=== PATIENT | male | born 1935 | race African-American/Black ===

== ENCOUNTER 2025-06-29 09:37 | Outpatient (AMB) | payer MEDICARE, SELFPAY ==
[2025-06-29 09:39] VITALS: BP 109/70; PULSE 66; O2SAT 100; BMI 21.8
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
== END 2025-06-29 10:02 | disposition home or self-care (01) ==
LOC: HO.HKA 09:38
PROVIDERS: PCP Internal Medicine; Visit Provider Internal Medicine Hypertension Specialist
DX: N18.30 Chronic kidney disease, stage 3 unspecified (principal); D64.9 Anemia, unspecified; I10 Essential (primary) hypertension
CPT/HCPCS: 99204

== ENCOUNTER 2025-06-29 10:14 | Outpatient (REF) | payer MEDICARE, SELFPAY ==
[2025-06-29 10:56] LABS: Appearance Urine Clear; Glucose Urine UA Negative (Negative); PH 5.5 (5.0-9.0); Specific Gravity - Urine 1.020 (1.005-1.025); UMIC TRIGGER UA YES
[2025-06-29 11:02] LABS: Hematocrit 29.3 % (42.0-52.0); Hemoglobin 8.8 g/dl (14.0-18.0); Mean Corpuscular HGB Conc 30.0 g/dl (31.0-36.0); Mean Corpuscular Hemoglobin 23.8 pg (27.0-33.0); Mean Corpuscular Volume 79.4 fL (80.0-98.0); NRBC Abs Auto 0.000 X10*3/uL (0.0-0.012); NRBC Pct Auto 0.0 /100WBC (0.0-0.2); Platelet Count 275 X10*3/uL (160-400); Red Blood Count 3.69 X10*6/uL (4.60-5.80); White Blood Count 6.4 X10*3/uL (4.8-10.8)
[2025-06-29 11:21] LABS: Anion Gap 11 (12-20); Blood Urea Nitrogen 27 mg/dL (9-16); Calcium 8.9 mg/dL (8.4-10.2); Carbon Dioxide 20 mmol/L (22-29); Chloride 116 mmol/L (96-108); Estimated Glomerular Filt Rate 33; Iron 45 mcg/dL (45-160); Percent Iron Saturation 20 % (15-50); Potassium 4.0 mmol/L (3.3-5.1); Sodium 143 mmol/L (135-145); Total Iron Binding Capacity 226 mcg/dL (228-428); Unsaturated Iron Binding 181 ug/dL
[2025-06-29 11:26] LABS: Total Protein Urine Random 96 mg/dL (<12)
[2025-06-29 11:34] LABS: Parathyroid Hormone Intact 101.7 pg/mL (8.7-77.1)
[2025-06-29 11:46] LABS: Ferritin 45 ng/mL (20-250)
--- OUTSIDE RECORDS SUMMARY | 2025-06-29 21:18 | XMS_ITS | Data Portability ---
Author Organization [place] [facility] Address [address] [place] [id number] Care Team Providers Care Aquatics Lifeguard Name Role Phone MARTINEZ NELSON Primary Care Provider [phone] Assessment Encounter Date Assessment Date Assessment LastModified by Organization Details LastModified Time 04/12/2021 04/12/2021 Overview/History : Patient is an 85 year old male who is alert to person and place. He relies on the calendar to recite date. Patient presents at request of his [employer] with uncontrolled HTN. He is unreliable with remember to take his medication. He is on a HTN medication regime consisting of Amlodipine, Hydralazine and Labetalol QD. Patient medical history significant for stroke in the past. Patient lives alone in his home. His daughters are easily available via telephone and were apprised of patient status. There are multiple cans of soup, canned vegetables and a large container of salt on top of the microwave. Exam: Afebrile 97.7. HRR 77, +murmur. Hypertensive 200/90 left and right upper extremities. Moist mucous membranes. LSCTA bilaterally, no work of breathing. Abdomen SNT, + BS x 4 quadrants. No CVA tenderness. DDx considered, but not limited to: HTN Anxiety considered Sleep apnea considered Renovascular hypertension WANDER Work up/Results: exam Plan/Discussion: Patient visit escalated to ED. He did take his antihypertensive medications yesterday evening and this am. HTN remains unchanged from yesterday. Patient denies symptomology, however given his CVA history and WANDER history advised to go to ED. Contacted patient PCP office, patient to go to ED for stabilization. [address] provided [address] [facility]. Proper Personal Protective Equipment (PPE), including gloves, eye protection and masks were donned and doffed appropriately and all equipment cleaned using approved technique with germicidal disposable wipes prior to and after care of this patient according to [facility]'s infection prevention protocols. In order to obtain further information and compare any laboratory results/values, I have accessed old patient records. This information was pertinent in my medical decision making today. Not available 04/12/2021 21:17:43 Plan of Treatment Reminders Order Date Submit Date Provider Last Modified By Organization Details Last Modified Time Details Appointments None record ed. Lab None record ed. Referral None record ed. Procedures None record ed. Surgeries None record ed. Imaging None record ed. Medication Orders None record ed. Patient TargetsNo targets recorded. Patient InstructionsNo instructions recorded. Reason for Referral None Reported. Medical Equipment None Reported. Allergies No known drug allergies Medications Name Sig Start Date Stop Date Status Note LastModified by Organization Details LastModified Time atorvastatin 40 mg tablet active Not Available Not Available Not Available labetalol 200 mg tablet active Not Available Not Available No t Available hydralazine 25 mg tablet active Not Available Not Available No t Available amlodipine 10 mg tablet active Not Available Not Available No t Available Vitals Date Recorded Body temperature Heart rate Respiratory rate Oxygen saturation Oxygen saturation in Arterial blood by Pulse oximetry Systolic And Diastolic Provider Name and Address Organization Details Last Updated DateTime 97.7 [degF] 77 /min 20 /min 97 % 97 % 200/90 mm[Hg] Not Available [facility] 08:47:50 Social History Question Answer Notes LastModified by Organizat ion Details LastModified Time Tobacco Smoking Status Never Smoker Fariha Lacey, [address] [place], [id number], [place] [facility] 04/12/2021 08:47:21 Do You Have An Advance Directive? No Information not available 04/12/2021 What Is Your Code Status? Full Code Information not available 04/12/2021 Within The Past 12 Months, Has It Happened That The Food You Bought Just Didn't Last And You Didn't Have Money To Get More. No Information not available 04/12/2021 Within The Past 12 Months, Have You Worried That Your Food Would Run Out Before You Got Money To Buy More. No Information not available 04/12/2021 Fall Risk: Do You Feel Unsteady When Standing Or Walking? Yes History Of Falls Information not available 04/12/2021 We Know That How And When People Interact With Friends And Family Can Be Very Different From Person To Person. How Often Do You Have The Opportunity To See Or Talk To People That You Care About And Feel Close To? (Ex: Talking To Friends On The Phone Or Visiting Friends Or Family Or Going To Buddhist Or Club Meetings) 1 Or 2 Times Per Week Information not available 04/12/2021 Excessive Alcohol Or Drug Use No Information not available 04/12/2021 Does This Patient Have A PCP? Yes Information not available 04/12/2021 We Know From Many Of Our Patients That Covering All Of Their Costs Can Be Difficult At Times. This Can Cause Stress And Impact Health. In The Past Year, Have You Been Unable To Get Any Of The Following When It Was Really Needed? No Information not available 04/12/2021 What Is Your Housing Situation Today? I Have Housing Information not available 04/12/2021 Would You Like Help Connecting To Resources? None Information not available 04/12/2021 Sex: Unknown Functional Status Question Answer Note LastModified by Organizat ion Details LastModified Time Do you use any illicit or recreational drugs? No Information not available 04/12/2021 Do you or have you ever used any other forms of tobacco or nicotine? No Information not available 04/12/2021 What is your level of alcohol consumption? None Information not available 04/12/2021 Mental Status None recorded. Family History Nothing Reported. Medical History Condition Response Diabetes N Coronary Artery Disease N High Cholesterol Y Cancer N Pulmonary Embolism N Stroke Y Hypertension Y Depression N COPD N Asthma N Kidney Disease Y Past Encounters Encounter ID Performer Location Encounter Start Date Encounter Closed Date Diagnosis/Indication Diagnosis SNOMED-CT Code Diagnosis ICD10 Code Diagnosis IMO Codes Diagnosis Note [id number] Fariha Lacey NP [facility] [address] [place] [address] 04/12/2021 08:40:16 04/12/2021 14:02:52 Health Concerns Section Related Observation LastModified by Organization Detai ls LastModified Time None Recorded Concern Status LastModified by Organization Details LastModified Time None Recorded Advance Directives Directive N: Payers Insurance Date Sequence Insurance Name Policy Number Policy Parsons Covered Member ID Parsons Member ID Guarantor Name 04/11/2021 1 *SELF PAY* Stephen Valderrama [id number] Stephen Valderrama 04/13/2021 1 [facility] (MEDICARE REPLACEMENT/A DVANTAGE - HMO) [id number] Stephen Valderrama [id number] Stephen Valderrama Notes Date Note Type Note Provider Name and Address Organization Details Recorded Time 04/12/2021 text/html Patient is an 85 year old male who is new to and new to this provider. Chief complaint is uncontrolled HTN. Patient denies symptoms. This provider contacted his [employer] who was in residence with patient yesterday to evaluate. Patient missed doses of Htn medications; he is on Amlodipine 10 mg, Hydralazine 25 mg and Labetalol 200 mg Q day. Patient states he did take his medication today. Past medical history significant for CVA in the past, hyperkalemia, WANDER. Fariha Lacey, [address], [place], [id number], [place] [facility] 04/12/2021 21:17:49
--- OUTSIDE RECORDS SUMMARY | 2025-06-29 21:18 | XMS_ITS | Clinical Summary ---
Author Organization 175 [facility] Address [address] [place] [address] Phone Care Team Providers Care Vegetable Tier Name Role Phone Marlon Putnam MD Primary Care Provider [phone] Allergies No known active allergies Medications hydrALAZINE (APRESOLINE) 25 mg tablet TAKE 3 TABLETS BY MOUTH EVERY 8 HOURS 900 tablet 2 5 Active labetaloL (NORMODYNE) 200 mg tablet TAKE 1 TABLET BY MOUTH TWICE DAILY 200 tablet 2 5 Active amLODIPine (NORVASC) 10 mg tablet TAKE 1 TABLET BY MOUTH DAILY 100 tablet 2 5 Active atorvastatin (LIPITOR) 40 mg tablet TAKE 1 TABLET BY MOUTH DAILY 100 tablet 2 5 Active brimonidine (ALPHAGAN) 0.2 % ophthalmic solution Administer 1 drop into both eyes 2 (two) times a day. 5 Active dorzolamide-natan oloL (COSOPT) 22.3-6.8 mg/mL ophthalmic solution Administer 1 drop into both eyes 2 (two) times a day. Active Encounters Date Type Department Care Team Description 05/12/2025 Results Follow-Up Internal Medicine [facility] [address] [phone] Marlon Putnam MD 05/11/2025 8:45 AM EDT Office Visit Internal Medicine [facility] [address] [phone] Marlon Putnam MD Primary hypertension (Primary Dx); Hypercholesterolemia; Stage 3a chronic kidney disease ([facility] V24, [facility] V28); Right foot pain from Last 3 Months Immunizations Immunization Administration Dates Next Due Pfizer SARS-CoV-2 COVID-19, mRNA, LNP-S, preservative free 04/27/2025 Respiratory Syncytial Virus Monoclonal Antibody (palivizumab), Intramuscular 04/27/2025 Medical History Medical History Date Comments Anemia 01/21/2018 DX:Anemia Benign essential hypertension 05/09/2018 DX :Benign essential hypertension CKD (chronic kidney disease) , stage III ([facility] V24, [facility] V28) 05/09/2018 DX:CKD (chronic kidney disease), stage III (HCC) Type 2 diabetes mellitus wit h renal manifestations ([facility] V24, [facility] V28) 05/09/2018 DX: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) Hyperlipidemia 09/19/2018 DX:Hyperlipidemi a Social History Tobacco Use Types Packs/Day Years Used Date Smoking Tobacco: Never Smokeless Tobacco: Never Alcohol Use Standard Drinks/Week Comments No 0 (1 standard drink = 0.6 oz pur e alcohol) Sex and Gender Information Value Date Recorded Sex Assigned at Not on file Legal Sex Male 7:12 PM EST Gender Identity Not on file Sexual Orientation Not on file Obstetrics History Last Filed Vital Signs Vital Sign Reading Time Taken Comments Blood Pressure 150/70 05/11/2025 9:38 AM EDT Pulse 58 05/11/2025 9:22 AM EDT Temperature 35.9 C (96.6 F) 05/11/2025 9:22 AM EDT Respiratory Rate - - Oxygen Saturation 99% 05/11/2025 9:22 AM EDT Inhaled Oxygen Concentration - - Weight 68.9 kg (151 lb 12.8 oz) 05/11/2025 9:22 AM EDT Height 180.3 cm (5' 11 ) 05/11/2025 9:22 AM EDT Body Mass Index 21.17 05/11/2025 9:22 AM EDT Plan of Treatment Health Maintenance Due Date Last Done Comments Diabetes: Annual Foot Exam 11/22/1945 Diabetes: Annual Retina Eye Exam 11/22/1945 DTaP,Tdap,and Td Vaccines (1 - Tdap) 1956 Zoster Vaccines (1 of 2) 1956 RSV Immunization Adult Patients (1 - 1-dose 75+ series) 2012 Pneumococcal Vaccine: 50+ Years (2 of 2 - PCV20 or PCV21) 07/31/2017 07/31/2016 Social Influencers of Health Screening 07/22/2022 Diabetes: Blood Sugar Contro l Test (HGBA1C) 07/29/2022 Influenza Vaccine (#1) 2025 8, 07/31/2016 COVID-19 Vaccine (2 - Pfizer risk series) 05/18/2025 04/27/2025 Falls Risk Assessment 05/11/2026 05/11/2025 Hypertension/CHF/CAD Annual BMP Blood Test 05/11/2026 05/11/2025 Medicare Annual Wellness Visit 05/11/2026 05/11/2025 Cholesterol Screening (Lipid Panel) 05/11/2030 05/11/2025 Depression Screening Completed 05/11/2025 HIB Vaccines Aged Out No longer eligi ble based on patient's age to complete this topic HPV Vaccines Aged Out No longer eligi ble based on patient's age to complete this topic Hepatitis A Vaccines Aged Out No long er eligible based on patient's age to complete this topic Hepatitis B Vaccines Aged Out No long er eligible based on patient's age to complete this topic IPV Vaccines Aged Out No longer eligi ble based on patient's age to complete this topic MMR Vaccines Aged Out No longer eligi ble based on patient's age to complete this topic Meningococcal ACWY Vaccine Aged Out N o longer eligible based on patient's age to complete this topic Meningococcal B Vaccine Aged Out No l onger eligible based on patient's age to complete this topic RSV Immunization Patients Under 20 months Aged Out No longer eligible b ased on patient's age to complete this topic Varicella Vaccines Aged Out No longer eligible based on patient's age to complete this topic Procedures Procedure Name Priority Date/Time Associated Diagnosis Comments CBC WITH AUTO DIFFERENTIAL Routine 05/11/2025 10:06 AM EDT Primary hypertension Hypercholesterolem ia Stage 3a chronic kidney disease ([facility] V24, [facility] V28) CBC AND DIFFERENTIAL Routine 05/11/2025 10:06 AM EDT Primary hypertension Hypercholesterolem ia Stage 3a chronic kidney disease (CMS/HCC V24, CMS/HCC V28) COMPREHENSIVE METABOLIC PANEL Routine 05/11/2025 10:06 AM EDT Primary hypertension Hypercholesterolem ia Stage 3a chronic kidney disease (CMS/HCC V24, CMS/HCC V28) LIPID PANEL WITH REFLEX TO DIRECT LDL Routine 05/11/2025 10:06 AM EDT Primary hypertension Hypercholesterolem ia Stage 3a chronic kidney disease (CMS/HCC V24, CMS/HCC V28) THYROID STIMULATING HORMONE Routine 05/11/2025 10:06 AM EDT Primary hypertension Hypercholesterolem ia Stage 3a chronic kidney disease (CMS/HCC V24, CMS/HCC V28) VITAMIN B12 Routine 05/11/2025 10:06 AM EDT Primary hypertension Hypercholesterolem ia Stage 3a chronic kidney disease ([facility] V24, [facility] V28) Right foot pain from Last 3 Months Results * Lipid panel with reflex to direct LDL (05/11/2025 10:06 AM EDT) Cholesterol 115 0 - 200 mg/dL LAB CHEMISTRY METHOD 05/11/2025 4:19 PM [facility] Triglycerides 64 0 - 150 mg/dL LAB CHEMISTRY METHOD 05/11/2025 4:19 PM [facility] HDL 64 >=40 mg/dL LAB CHEMISTRY METHOD 05/11/2025 4:19 PM T [facility] LDL Calculated 38 0 - 100 mg/dL LAB CHEMISTRY METHOD 05/11/2025 4:19 PM [facility] Comment:Estimated LDL Calcul ated using equation: Total cholesterol - HDL cholesterol - (Triglycerides/5) VLDL Cholesterol Messi 12.8 mg/dL LAB CHEMISTRY METHOD 05/11/2025 4:19 PM [facility] Non HDL Chol. (LDL+VLDL) 51 <145 mg/dL LAB CHEMISTRY METHOD 05/11/2025 4:19 PM EDT [facility] Chol/HDL Ratio 1.8 0.0 - 4.4 LAB CHEMISTRY METHOD 05/11/2025 4:19 PM EDT [facility] Blood Venous blood specimen / Unknown Venipuncture / Unknown 05/11/2025 10:06 AM EDT 05/11/2025 10:06 AM EDT us Marlon Putnam MD LAB BLOOD ORDERABLES Final Resul t [facility] [address] [place] [address], [place] [phone] * (ABNORMAL) CBC auto differential (05/11/2025 10:06 AM EDT) WBC 7.8 4.8 - 10.8 K/mcL LAB HEMETOLOGY METHOD 05/11/2025 2:24 PM EDT [facility] RBC 3.60(L) 4.50 - 5.50 M/mcL LAB HEMETOLOGY METHOD 05/11/2025 2:24 PM EDT [facility] Hemoglobin 8.6(L) 13.5 - 17.5 g/dL LAB HEMETOLOGY METHOD 05/11/2025 2:24 PM [facility] Hematocrit 28.7(L) 42.0 - 54.0 % LAB HEMETOLOGY METHOD 05/11/2025 2:24 PM EDT [facility] MCV 79.5 79.0 - 98.0 FL LAB HEMETOLOGY METHOD 05/11[facility]25 [facility] MCH 23.8(L) 27.0 - 32.0 pcg LAB HEMETOLOGY METHOD 05/11/2025 2:24 PM [facility] MCHC 30.0(L) 32.0 - 37.0 g/dL LAB HEMETOLOGY METHOD 05/11/2025 2:24 PM [facility] RDW 21.5(H) 11.0 - 15.0 % LAB HEMETOLOGY METHOD 05/11/2025 2:24 PM [facility] Platelets 267 130 - 400 K/mcL LAB HEMETOLOGY METHOD 05/11/2025 2:24 PM [facility] MPV 9.7 7.0 - 11.0 FL LAB HEMETOLOGY METHOD 05/11/2025 2:24 PM [facility] NRBC 0.0 <1.0 % LAB HEMETOLOGY METHOD 05/11/2025 2:24 PM [facility] NRBC Absolute 0.00 <0.10 K/mcL LAB HEMETOLOGY METHOD 05/11/2025 2:24 PM [facility] Neutrophils Relative 49.6 % LAB HEMETOLOGY METHOD 05/11/2025 2:24 PM [facility] Lymphocytes Relative 38.2 % LAB HEMETOLOGY METHOD 05/11/2025 2:24 PM [facility] Monocytes Relative 8.0 % LAB HEMETOLOGY METHOD 05/11/2025 2:24 PM [facility] Eosinophils Relative 3.4 % LAB HEMETOLOGY METHOD 05/11/2025 2:24 PM [facility] Basophils Relative 0.4 % LAB HEMETOLOGY METHOD 05/11/2025 2:24 PM [facility] Immature Granulocytes Relative 0.4 % LAB HEMETOLOGY METHOD 05/11/2025 2:24 PM [facility] Neutrophils Absolute 3.85 1.50 - 7.00 K/mcL LAB HEMETOLOGY METHOD 05/11/2025 2:24 PM [facility] Lymphocytes Absolute 2.96 1.00 - 5.00 K/mcL LAB HEMETOLOGY METHOD 05/11/2025 2:24 PM EDT [facility] Monocytes Absolute 0.62 0.20 - 1.00 K/mcL LAB HEMETOLOGY METHOD 05/11/2025 2:24 PM EDT [facility] Eosinophils Absolute 0.26 0.00 - 0.50 K/mcL LAB HEMETOLOGY METHOD 05/11/2025 2:24 PM EDT [facility] Basophils Absolute 0.03 0.00 - 0.20 K/[facility] LAB HEMETOLOGY METHOD 05/11/2025 2:24 PM EDT [facility] Immature Granulocytes Absolute 0.03 0.00 - 0.03 K/mcL LAB HEMETOLOGY METHOD 05/11/2025 2:24 PM EDT [facility] Blood Venous blood specimen / Unknown Venipuncture / Unknown 05/11/2025 10:06 AM EDT 05/11/2025 10:06 AM EDT us Marlon Putnam MD LAB BLOOD ORDERABLES Final Resul t Performing Organization Address City/[facility]/ZIP Co de Phone Number [facility] [address] [place] [address], [place] [phone] * Thyroid stimulating hormone (05/11/2025 10:06 AM EDT) TSH 2.55 0.40 - 4.00 mcIU/mL LAB CHEMISTRY METHOD 05/11/2025 4:49 PM EDT [facility] Blood Venous blood specimen / Unknown Venipuncture / Unknown 05/11/2025 10:06 AM EDT 05/11/2025 10:06 AM EDT us Marlon Putnam MD LAB BLOOD ORDERABLES Final Resul t Performing Organization Address City/[facility]/ZIP Co de Phone Number [facility] [address] [place] [address], [place] [phone] * Vitamin B12 (05/11/2025 10:06 AM EDT) Pathologist [facility] Vitamin B-12 701 250 - 900 pcg/mL LAB CHEMISTRY METHOD 05/11/2025 4:19 PM [facility] Blood Venous blood specimen / Unknown Venipuncture / Unknown 05/11/2025 10:06 AM EDT 05/11/2025 10:06 AM EDT us Marlon Putnam MD LAB BLOOD ORDERABLES Final Resul t [facility] [address] [place] [address], * (ABNORMAL) Comprehensive metabolic panel (05/11/2025 10:06 AM EDT) [facility] Sodium 140 133 - 145 mmol/L LAB CHEMISTRY METHOD 05/11/2025 4:40 PM [facility] Potassium 4.2 3.5 - 5.5 mmol/L LAB CHEMISTRY METHOD 05/11/2025 4:40 PM [facility] Chloride 114(H) 96 - 110 mmol/L LAB CHEMISTRY METHOD 05/11/2025 4:40 PM [facility] CO2 17(L) 21 - 32 mmol/L LAB CHEMISTRY METHOD 05/11/2025 4:40 PM [facility] Anion Gap 9 3 - 11 LAB CHEMISTRY METHOD 05/11/2025 4:40 PM [facility] Glucose 96 70 - 100 mg/dL LAB CHEMISTRY METHOD 05/11/2025 4:40 PM [facility] BUN 40(H) 5 - 25 mg/dL LAB CHEMISTRY METHOD 05/11/2025 4:40 PM [facility] Creatinine 2.49(H) 0.70 - 1.30 mg/dL LAB CHEMISTRY METHOD 05/11/2025 4:40 PM [facility] eGFR 24(L) >=60 mL/min/1. 73m2 LAB CHEMISTRY METHOD 05/11/2025 4:40 PM EDT [facility] Comment:Calculation based on the Chronic Kidney Disease Epidemiology Collaboration (CKD-EPI) equation refit without adjustment for race. BUN/Creatinine Ratio 16.1 LAB CHEMISTRY METHOD 05/11/2025 4:40 PM EDT [facility] Calcium 9.0 8.5 - 10.5 mg/dL LAB CHEMISTRY METHOD 05/11/2025 4:40 PM EDT [facility] AST (SGOT) 21 10 - 42 unit/L LAB CHEMISTRY METHOD 05/11/2025 4:40 PM [facility] ALT (SGPT) 19 10 - 60 unit/L LAB CHEMISTRY METHOD 05/11/2025 4:40 PM [facility] Alkaline Phosphatase 195(H) 42 - 121 unit/L LAB CHEMISTRY METHOD 05/11/2025 4:40 PM T [facility] Total Protein 7.1 6.0 - 8.0 g/dL LAB CHEMISTRY METHOD 05/11/2025 4:40 PM T [facility] Albumin 3.7 3.2 - 5.0 g/dL LAB CHEMISTRY METHOD 05/11/2025 4:40 PM [facility] Total Bilirubin 0.4 0.0 - 1.4 mg/dL LAB CHEMISTRY METHOD 05/11/2025 4:40 PM T [facility] Blood Venous blood specimen / Unknown Venipuncture / Unknown 05/11/2025 10:06 AM EDT 05/11/2025 10:06 AM EDT us Marlon Putnam MD LAB BLOOD ORDERABLES Final Resul t [facility] [address] [place] [address], from Last 3 Months Insurance [employer] MEDICARE Care Teams Vegetable Tier Relationship Specialty Start Date End Date Marlon Putnam MD [address] [place] [id number] PCP - General Internal Medicine 07/08/18
--- OUTSIDE RECORDS SUMMARY | 2025-06-29 21:18 | XMS_ITS | Encounter Summary ---
Author Organization [facility] Address [address] [place] [address] Care Team Providers Care Graduate Nurse Name Role Phone Marlon Putnam MD Primary Care Provider [phone] Encounter Details Date Type Department Care Team ([facility] st Contact Info) Description 05/12/2025 Results Follow-Up Internal Medicine - [place] [address] [phone] Marlon Putnam MD [address] [place] [phone] Social History Tobacco Use Types Packs/Day Years Used Date Smoking Tobacco: Never Smokeless Tobacco: Never Alcohol Use Standard Drinks/Week Comments No 0 (1 standard drink = 0.6 oz pur e alcohol) Sex and Gender Information Value Date Recorded Sex Assigned at Not on file Legal Sex Male 7:12 PM EST Gender Identity Not on file Sexual Orientation Not on file documented as of this encounter Plan of Treatment Not on file documented as of this encounter Visit Diagnoses Not on filedocumented in this encounter Additional Health Concerns Assessment Noted Time PHQ-9 Depression Total Score: 0 05/11/20 25 9:16 AM EDT A fall risk assessment has been complete d for the patient 05/11/2025 9:14 AM EDT documented as of this encounter Care Teams Graduate Nurse Relationship Specialty Start Date End Date Marlon Putnam MD 175 [facility] [address] [place] [address] PCP - General Internal Medicine 07/08/18 documented as of this encounter
[2025-07-01 21:23] LABS: Prot Elec - Albumin 4.0 g/dL (3.8-4.8); Prot Elec - Alpha1 0.3 g/dL (0.2-0.3); Prot Elec - Alpha2 0.6 g/dL (0.5-0.9); Prot Elec - Beta 1 0.6 g/dL (0.4-0.6); Prot Elec - Beta 2 0.2 g/dL (0.2-0.5); Prot Elec - Gamma 1.1 g/dL (0.8-1.7); Prot Elec - Total Protein 6.9 g/dL (6.1-8.1)
== END 2025-06-29 10:15 | disposition home or self-care (01) ==
LOC: HO.10HDL 10:14
PROVIDERS: Visit Provider Internal Medicine Hypertension Specialist
DX: N18.30 Chronic kidney disease, stage 3 unspecified (principal)
CPT/HCPCS: 36415; 80048; 81001; 82306; 82570; 82728; 83540; 83970; 84156; 84165; 85027; 99202

== ENCOUNTER 2025-07-03 10:59 | Outpatient (REF) | payer MEDICARE, SELFPAY ==
--- NOTE | ~2025-07-03 | US_ITS ---
CLINICAL HISTORY: N18.30 - Chronic kidney disease, stage 3 unspecified Exam: Renal ultrasound Comparison: None Findings: Left kidney upper and lower pole are not well visualized due to limited acoustic window, grossly normal in size and echogenicity, 13.0 cm in length, no apparent cortical thinning. 6 mm calculus in the midpole. No hydronephrosis. Complex avascular cyst with several septa in the upper pole, 7.5 x 6.3 x 6.5 cm, the superior cystic wall is not well seen. No abnormal vascular flow of the left kidney. The right kidney is atrophic and echogenic with diffuse cortical thinning, very difficult to see, lower pole is mostly obscured by bowel gas, 6.2 cm in length, no apparent shadowing calculus, no hydronephrosis, 8 mm and 10 mm avascular hypoechoic lesions with minimal increased through transmission in the upper pole, probably cysts. Single image of right renal interpolar region demonstrate equivocal vascular flow. Impression: 1. Atrophic right kidney. 2. Probable right renal cysts and left renal complex cyst, not well visualized, recommend renal CT or MRI for further evaluation. 3. Nonobstructing left nephrolithiasis. This document has been electronically signed by: Mellisa Chilel MD on 07/03/2025 16:27:18
--- OUTSIDE RECORDS SUMMARY | 2025-07-03 11:52 | XMS_ITS | Data Portability ---
Author Organization [place] - [facility] Address [address] [place] [phone] Care Team Providers Care Assisted Living Housekeeper Name Role Phone MARTINEZ NELSON Primary Care Provider Assessment Encounter Date Assessment Date Assessment LastModified by Organization Details LastModified Time 04/12/2021 04/12/2021 Overview/History : Patient is an 85 year old male who is alert to person and place. He relies on the calendar to recite date. Patient presents at request of his CORDWOOD CUTTER with uncontrolled HTN. He is unreliable with [...] for stabilization. 911 called. Expect provided to [facility]. Proper Personal Protective Equipment (PPE), including gloves, eye protection and masks were donned and doffed appropriately and all equipment cleaned using approved technique with germicidal disposable wipes prior to and after care of this patient [facility]. In order to obtain [...] temperature Heart rate Respiratory rate Oxygen saturation Systolic And Diastolic Provider Name and Address Organization Details Last Updated DateTime 97.7 [degF] 77 /min 20 /min 97 % 200/90 mm[Hg] Not Available [facility] 08:[facility] Social History Question Answer Notes LastModified by Organizat ion Details LastModified Time Tobacco Smoking Status Never Smoker Fariha Lacey, LEROY [address] [place], [address], [place] [facility] 04/12/2021 08:47:21 Do You Have An [...] Visiting Friends Or Family Or Going To Gnosticism Or Club Meetings) 1 Or 2 Times [...] Coronary Artery Disease N High Cholesterol Y Pulmonary Embolism N Cancer N Hypertension Y Stroke Y Asthma N COPD N Depression N Kidney Disease Y Past Encounters Encounter ID Performer Location Encounter Start Date Encounter Closed Date Diagnosis/Indication Diagnosis SNOMED-CT Code Diagnosis ICD10 Code Diagnosis IMO Codes Diagnosis Note [id number] Fariha Lacey NP [facility] [address] [place] [address] 04/12/2021 08:40:16 04/12/2021 14:02:52 Health Concerns Section Related Observation LastModified by Organization Detai ls LastModified Time None Recorded Concern Status LastModified by Organization Details LastModified Time None Recorded Advance Directives Directive N: Payers Insurance Date Sequence Insurance Name Policy Number Policy Parsons Covered Member ID Parsons Member ID Guarantor Name 04/11/2021 1 *SELF PAY* Stephen Valderrama [id number] Stephen Colón Valderrama 04/13/2021 1 [facility] (MEDICARE REPLACEMENT/A DVANTAGE - HMO) [id number] Stephen Valderrama [id number] Stephen Valderrama Notes Date Note Type Note Provider Name and Address Organization Details Recorded Time 04/12/2021 text/html Patient is an 85 year old male who is new to and new to this provider. Chief complaint is uncontrolled HTN. Patient denies symptoms. This provider contacted his CORDWOOD CUTTER who was in residence with patient yesterday to evaluate. Patient missed doses of Htn medications; he is on Amlodipine 10 mg, Hydralazine 25 mg and Labetalol 200 mg Q day. Patient states he did take his medication today. Past medical history significant for CVA in the past, hyperkalemia, WANDER. Fariha Lacey, LEROY [facility] [address], [place], [address], [place] [facility] 04/12/2021 21:17:49
--- OUTSIDE RECORDS SUMMARY | 2025-07-03 11:52 | XMS_ITS | Clinical Summary ---
Author Organization 175 [facility] Address 175 [place] [address] Phone Care Team Providers Care Oil Well Fishing Tool Technician Name Role Phone Marlon Putnam MD Primary Care Provider [phone] Allergies No known active allergies Medications hydrALAZINE [...] Team Description 05/12/2025 Results Follow-Up Internal Medicine [facility] [address] [address] Marlon Putnam MD 05/11/2025 8:45 AM EDT Office Visit Internal Medicine [facility] [address] [address] Marlon Putnam MD Primary hypertension (Primary Dx); Hypercholesterolemia; Stage 3a chronic kidney disease ([facility] V24, [facility] V28); Right foot pain from Last 3 Months Immunizations Immunization Administration Dates Next Due Pfizer SARS-CoV-2 COVID-19, mRNA, LNP-S, preservative free 04/27/2025 Respiratory Syncytial Virus Monoclonal Antibody (palivizumab), Intramuscular 04/27/2025 Medical History Medical History Date Comments Anemia 01/21/2018 DX:Anemia Benign essential hypertension 05/09/2018 DX :Benign essential hypertension CKD (chronic kidney disease) , stage III ([facility] V24, [facility] V28) 05/09/2018 DX:CKD (chronic kidney disease), stage III (HCC) Type 2 diabetes mellitus wit h renal manifestations ([facility] V24, [facility] V28) 05/09/2018 DX:Type 2 diabetes mellitus with [...] Procedure Name Priority Date/Time Associated Diagnosis Comments EXTERNAL CLINICAL LAB 06/29/2025 CBC WITH AUTO DIFFERENTIAL Routine 05/11/2025 10:06 AM EDT Primary hypertension Hypercholesterolem ia Stage 3a chronic kidney disease ([facility] V24, [facility] V28) CBC AND DIFFERENTIAL Routine 05/11/2025 10:06 [...] Stage 3a chronic kidney disease (CMS/HCC V24, CMS/[facility] V28) VITAMIN B12 Routine 05/11/2025 10:06 AM EDT Primary hypertension Hypercholesterolem ia Stage 3a chronic kidney disease (CMS/HCC V24, [facility] V28) Right foot pain from Last 3 Months Results * External clinical lab (06/29/2025) Provider [facility] LAB BLOOD ORDERABLES Fin al Result * Lipid panel with reflex to direct LDL (05/11/2025 10:06 AM EDT) Cholesterol 115 0 - 200 mg/dL LAB CHEMISTRY METHOD 05/11/2025 4:19 PM EDT [facility] Triglycerides 64 0 - 150 mg/dL LAB CHEMISTRY METHOD 05/11/2025 4:19 PM T [facility] HDL 64 >=40 mg/dL LAB CHEMISTRY METHOD 05/11/2025 4:19 PM EDT [facility] LDL Calculated 38 0 - 100 mg/dL LAB CHEMISTRY METHOD 05/11/2025 4:19 PM T [facility] Comment:Estimated LDL Calcul ated using equation: Total cholesterol - HDL cholesterol - (Triglycerides/5) VLDL Cholesterol Messi 12.8 mg/dL LAB CHEMISTRY METHOD 05/11/2025 4:19 PM EDT [facility] Non HDL Chol. (LDL+VLDL) 51 <145 mg/dL LAB CHEMISTRY METHOD 05/11/2025 4:19 PM EDT [facility] Chol/HDL Ratio 1.8 0.0 - 4.4 LAB CHEMISTRY METHOD 05/11/2025 4:19 PM EDT [facility] Blood Venous blood specimen / Unknown Venipuncture / Unknown 05/11/2025 10:06 AM EDT 05/11/2025 10:06 AM EDT us Marlon Putnam MD LAB BLOOD ORDERABLES Final Resul t [facility] [address] [place] [address], [place] [phone] * (ABNORMAL) CBC auto differential (05/11/2025 10:06 AM EDT) WBC 7.8 4.8 - 10.8 K/mcL LAB HEMETOLOGY METHOD 05/11/2025 2:24 PM EDT [facility] RBC 3.60(L) 4.50 - 5.50 M/mcL LAB HEMETOLOGY METHOD 05/11/2025 2:24 PM T [facility] Hemoglobin 8.6(L) 13.5 - 17.5 g/dL LAB HEMETOLOGY METHOD 05/11/2025 2:24 PM EDT [facility] Hematocrit 28.7(L) 42.0 - 54.0 % LAB HEMETOLOGY METHOD 05/11/2025 2:24 PM EDT [facility] MCV 79.5 79.0 - 98.0 FL LAB HEMETOLOGY METHOD 05/11/2025 2:24 PM EDT [facility] MCH 23.8(L) 27.0 - 32.0 pcg LAB HEMETOLOGY METHOD 05/11/2025 2:24 PM EDT [facility] MCHC 30.0(L) 32.0 - 37.0 g/dL LAB HEMETOLOGY METHOD [facility]/11[facility]2025 [facility] RDW 21.5(H) 11.0 - 15.0 % LAB HEMETOLOGY METHOD 05/11/2025 2:24 PM EDT [facility] Platelets 267 130 - 400 K/mcL LAB HEMETOLOGY METHOD 05/11/2025 2:24 PM EDT [facility] MPV 9.7 7.0 - 11.0 FL LAB HEMETOLOGY METHOD 05/11/2025 2:24 [facility] NRBC 0.0 <1.0 % LAB HEMETOLOGY METHOD 05/11/2025 2:24 [facility] NRBC Absolute 0.00 <0.10 K/mcL LAB HEMETOLOGY METHOD 05/11/2025 2:24 PM [facility] Neutrophils Relative 49.6 % LAB HEMETOLOGY METHOD 05/11/2025 2:24 [facility] Lymphocytes Relative 38.2 % LAB HEMETOLOGY METHOD 05/11/2025 2:24 PM [facility] Monocytes Relative 8.0 % LAB HEMETOLOGY METHOD 05/11/2025 2:24 PM [facility] Eosinophils Relative 3.4 % LAB HEMETOLOGY METHOD 05/11/2025 2:24 [facility] Basophils Relative 0.4 % LAB HEMETOLOGY METHOD 05/11/2025 2:24 PM [facility] Immature Granulocytes Relative 0.4 % LAB HEMETOLOGY METHOD 05/11/2025 2:24 PM [facility] Neutrophils Absolute 3.85 1.50 - 7.00 K/mcL LAB HEMETOLOGY METHOD 05/11/2025 2:24 PM EDT [facility] Lymphocytes Absolute 2.96 1.00 - 5.00 K/mcL LAB HEMETOLOGY METHOD 05/11/2025 2:24 PM EDT [facility] Monocytes Absolute 0.62 0.20 - 1.00 K/mcL LAB HEMETOLOGY METHOD 05/11/2025 2:24 PM EDT [facility] Eosinophils Absolute 0.26 0.00 - 0.50 K/mcL LAB HEMETOLOGY METHOD 05/11/2025 2:24 PM EDT [facility] Basophils Absolute 0.03 0.00 - 0.20 K/mcL LAB HEMETOLOGY METHOD 05/11/2025 2:24 PM EDT [facility] Immature Granulocytes Absolute 0.03 0.00 - 0.03 K/mcL LAB HEMETOLOGY METHOD 05/11/2025 2:24 PM EDT [facility] Blood Venous blood specimen / Unknown Venipuncture / Unknown 05/11/2025 10:06 AM EDT 05/11/2025 10:06 AM EDT us Marlon Putnam MD LAB BLOOD ORDERABLES Final Resul t Performing Organization Address City/State/[facility] Co de Phone Number [facility] [address] [place] [address], * Thyroid stimulating hormone (05/11/2025 10:06 AM EDT) TSH 2.55 0.40 - 4.00 mcIU/mL LAB CHEMISTRY METHOD 05/11/2025 4:49 PM EDT [facility] Blood Venous blood specimen / Unknown Venipuncture / Unknown 05/11/2025 10:06 AM EDT 05/11/2025 10:06 AM EDT us Marlon Putnam MD LAB BLOOD ORDERABLES Final Resul t Performing Organization Address City/[facility]/ZIP Co de Phone Number [facility] [address] [place] [address], [place] [phone] * Vitamin B12 (05/11/2025 10:06 AM EDT) [facility] Vitamin B-12 701 250 - 900 pcg/mL LAB CHEMISTRY METHOD 05/11/2025 4:19 PM EDT [facility] Blood Venous blood specimen / Unknown Venipuncture / Unknown 05/11/2025 10:06 AM EDT 05/11/2025 10:06 AM EDT Marlon Putnam MD LAB BLOOD ORDERABLES Final Resul t Performing Organization Address [facility]/ZIP Co de Phone Number [facility] [address] [place] [address], [place] [phone] * (ABNORMAL) Comprehensive metabolic panel (05/11/2025 10:06 AM EDT) [facility] Sodium 140 133 - 145 mmol/L LAB CHEMISTRY METHOD 05/11/2025 4:40 PM EDT [facility] Potassium 4.2 3.5 - 5.5 mmol/L LAB CHEMISTRY METHOD 05/11/2025 4:40 PM [facility] Chloride 114(H) 96 - 110 mmol/L LAB CHEMISTRY METHOD 05/11/2025 4:40 PM [facility] CO2 17(L) 21 - 32 mmol/L LAB CHEMISTRY METHOD 05/11/2025 4:40 PM [facility] Anion Gap 9 3 - 11 LAB CHEMISTRY METHOD 05/11/2025 4:40 PM [facility] Glucose 96 70 - 100 mg/dL LAB CHEMISTRY METHOD 05/11/2025 4:40 PM [facility] BUN 40(H) 5 - 25 mg/dL LAB CHEMISTRY METHOD 05/11/2025 4:40 PM [facility] Creatinine 2.49(H) 0.70 - 1.30 mg/dL LAB CHEMISTRY METHOD 05/11/2025 4:40 PM [facility] eGFR 24(L) >=60 mL/min/1. 73m2 LAB CHEMISTRY METHOD 05/11/2025 4:40 PM [facility] Comment:Calculation based on the Chronic Kidney Disease Epidemiology Collaboration (CKD-EPI) equation refit without adjustment for race. BUN/Creatinine Ratio 16.1 LAB CHEMISTRY METHOD 05/11/2025 4:40 PM [facility] Calcium 9.0 8.5 - 10.5 mg/dL LAB CHEMISTRY METHOD 05/11/2025 4:40 PM [facility] AST (SGOT) 21 10 - 42 unit/L LAB CHEMISTRY METHOD 05/11/2025 4:40 PM [facility] ALT (SGPT) 19 10 - 60 unit/L LAB CHEMISTRY METHOD 05/11/2025 4:40 PM [facility] Alkaline Phosphatase 195(H) 42 - 121 unit/L LAB CHEMISTRY METHOD 05/11/2025 4:40 PM [facility] Total Protein 7.1 6.0 - 8.0 g/dL LAB CHEMISTRY METHOD 05/11/2025 4:40 PM [facility] Albumin 3.7 3.2 - 5.0 g/dL LAB CHEMISTRY METHOD 05/11/2025 4:40 PM [facility] Total Bilirubin 0.4 0.0 - 1.4 mg/dL LAB CHEMISTRY METHOD 05/11/2025 4:40 PM [facility] Blood Venous blood specimen / Unknown Venipuncture / Unknown 05/11/2025 10:06 AM EDT 05/11/2025 10:06 AM EDT Marlon Putnam MD LAB BLOOD ORDERABLES Final Resul t [facility] [address] [place] [address], from Last 3 Months Insurance [employer] Care Teams Oil Well Fishing Tool Technician Relationship Specialty Start Date End Date Marlon Putnam MD [address] [address] PCP - General Internal Medicine 07/08/18
--- OUTSIDE RECORDS SUMMARY | 2025-07-03 11:52 | XMS_ITS | Clinical Summary ---
Author Organization [facility] Address [address] [facility] [address] [place] [address] Phone Care Team Providers Care Visual Basic Developer Name Role Phone Marlon Putnam MD Primary Care Provider [phone] Allergies No known active allergies Medications aspirin (ST MARTINEZ) 81 MG EC tablet Take 1 tablet by mouth 1 (one) time each day Active spironolactone (ALDACTONE) 50 MG tablet Take 1 tablet by mouth 1 (one) time each day 06/25/2017 Active propranolol (INDERAL) 40 MG tablet Take 1 tablet by mouth in the morning and 1 tablet in the evening and 1 tablet before bedtime. Active hydrALAZINE 50 MG tablet Take 1 tablet by mouth in the morning and 1 tablet in the evening and 1 tablet before bedtime. 03/26/2017 Active glipiZIDE (GLUCOTROL XL) 2.5 MG 24 hr tablet Take 1 tablet by mouth 1 (one) time each day Active calcium carbonate-vitam in D 600-200 MG-UNIT per tablet Take 1 tablet by mouth in the morning and 1 tablet in the evening. Active labetalol (NORMODYNE) 200 MG tablet 04/09/2022 Active hydrALAZINE 25 MG tablet 03/03/2022 Active atorvastatin (LIPITOR) 40 MG tablet Take 1 tablet by mouth 1 (one) time each day 12/29/2020 Active amLODIPine (NORVASC) 10 MG tablet Take 1 tablet by mouth 1 (one) time each day 12/29/2020 Active Active Problems Problem Noted Date Diagnosed Date Anemia in chronic kidney disease 11/20/2023 Vitamin D deficiency, not otherwise specified Secondary hyperparathyroidism 11/20/2023 Acute nontraumatic kidney injury, not otherwise specified 05/04/2022 Arthropathy unspecified, involving other unspeci fied sites 05/04/2022 Cerebrovascular accident 05/04/2022 Chronic kidney disease stage 4 05/04/2022 Confusional state 05/04/2022 Hypertension 05/04/2022 Dyslipidemia 09/19/2018 Type 2 diabetes mellitus with renal manifestatio ns 05/09/2018 Resolved Problems Problem Noted Date Diagnosed Date Resolved Date Acute nontraumatic kidney injury 05/04/2022 11/20/2023 Anemia 05/04/2022 11/20/2023 Family History Relation Status Comments Father Mother Social History Tobacco Use Types Packs/Day Years Used Date Smoking Tobacco: Former Tobacco Cessation:Counseling Given: Not Answered Sex and Gender Information Value Date Recorded Sex Assigned at Not on file Legal Sex Male 5:06 PM EST Gender Identity Not on file Sexual Orientation Not on file Plan of Treatment Health Maintenance Due Date Last Done Comments Pneumococcal Vaccine: 50+ Ye ars (1 of 2 - PCV) 1954 Diabetes: Hemoglobin A1C 05/04/2022 Diabetes: Ophthalmology Exam 05/04/2022 Diabetes: Pedal Pulse Checked 05/04/2022 Diabetes: Sensory Foot Exam 05/04/2022 Diabetes: Visual Foot Exam 05/04/2022 Influenza Vaccine (#1) 2025 Hepatitis B Vaccine Aged Out No longe r eligible based on patient's age to complete this topic Insurance [place] [address] [employer] Medicare Care Teams Visual Basic Developer Relationship Specialty Start Date End Date Marlon Putnam MD [address] [place] [id number] PCP - General Internal Medicine 03/08/22
--- OUTSIDE RECORDS SUMMARY | 2025-07-03 11:52 | XMS_ITS | Encounter Summary ---
Author Organization [facility] Address [address] [place] [address] Care Team Providers Care Emergency Service Restorer Name Role Phone Marlon Putnam MD Primary Care Provider [phone] Encounter Details Date Type Department Care Team ([facility] st Contact Info) Description 05/12/2025 Results Follow-Up Internal Medicine - [place] [address] [phone] Marlon Putnam MD [address] [place] [phone] Social History Tobacco Use Types Packs/Day Years [...] documented as of this encounter Care Teams Emergency Service Restorer Relationship Specialty Start Date End Date Marlon Putnam MD 175 [facility] [address] [place] [address] PCP - General Internal Medicine 07/08/18 documented as of this encounter
== END 2025-07-03 11:00 | disposition home or self-care (01) ==
LOC: HO.HMGCX 10:59
PROVIDERS: PCP Internal Medicine; Visit Provider Internal Medicine Hypertension Specialist
DX: N18.30 Chronic kidney disease, stage 3 unspecified (principal)
CPT/HCPCS: 76775

== ENCOUNTER → 2025-07-03 11:05 | Outpatient (BNV) | payer MEDICARE, SELFPAY | PROVIDERS: PCP Internal Medicine; Visit Provider Radiology Diagnostic Radiology | DX: N20.0 Calculus of kidney (principal); N26.1 Atrophy of kidney (terminal) | CPT/HCPCS: 76775 ==